=== PATIENT | male | born 1985 | race Caucasian/White ===

== ENCOUNTER 2017-10-22 21:43 | Inpatient (IN) | payer MEDICAID ==
[~2017-10-22] VITALS: Ht 170.2 cm; Wt 77.1 kg
--- NOTE | ~2017-10-22 | OP ---
PATIENT NAME: SIMONE CHANDLER MEDICAL RECORD: [id number] :83 LOCATION:[id number] ADMISSION DATE:10/23/17 SURGEON: DARLENE WEAVER MD DATE OF OPERATION: 10/23/2017 PREOPERATIVE DIAGNOSES: 1. Infected left wrist. 2. 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 3. Osteomyelitis of the left wrist. POSTOPERATIVE DIAGNOSES: 1. Infected left wrist. 2. 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 3. Osteomyelitis of the left wrist. PROCEDURES: 1. Excisional debridement of the left wrist and forearm to include skin, subcutaneous tissue, portions of fat, fascia, muscle, and bone. 2. Removal of previously placed hardware. 3. Wound VAC application. 4. Biplane external fixator application. SURGEON: Darlene Weaver MD ANESTHESIA: General. INTRAOPERATIVE COMPLICATIONS: Essentially none. SUMMARY OF PATHOLOGIC FINDINGS: While on initial x-rays what was previously thought to be a strut but this was actually a cement interposition to the Steinmann pin placed through the third metacarpal into the forearm was loose and was removed very easily. The Steinmann pin about the cement was also removed very easily. However, the remaining Steinmann pin although it was removed was fully threaded and went into the second metacarpal. INDICATIONS: A 32-year-old gentleman who came to our Emergency Department with an open draining wound on the volar aspect of his forearm with a history of 11 surgeries over 4 years done in [place], he was told that the infection was clear. He recently moved to our area and his arm became swollen. He has very limited use of his arm when he presented and was very adamant that his hand be cut off just above the wrist. After a superintendent [employer] discussion, I convinced him that I had to have the infection cleared before we have made that incision and the decision was made to proceed with the above surgery. OPERATIVE SUMMARY IN DETAIL: After obtaining the appropriate preoperative orthopedic surgery consent as well as anesthetic consultation, evaluation and clearance, the patient was brought to the operative suite and placed in the operating table in supine position. After general laryngeal mask was administered, tourniquet was placed about the proximal aspect of the left upper extremity. Left upper extremity was then prepped and draped in routine sterile fashion. The arm was elevated and exsanguinated, tourniquet inflated to 250 mmHg. The pin sticking out of the third metacarpal was immediately removed with little degree of difficulty. At this point, an incision was made over previous OPERATIVE REPORT [id number] SIMONE CHANDLER incision line over the volar aspect of the wrist and it was carried directly down to the patient's hardware. It is of note that all scar tissue was seen and no dorsal extensor tendons were noted, although dissection was carried out to find them and none were noted. At this point, it was discovered that this was a cement spacer interposition and it had obvious infection all around it. This was removed and cultures were taken at this time. Next, a grant was then placed around the fully threaded screw and it was removed. Fluoroscopy was brought in to be sure that all hardware was removed at this time and then a combination of curettage, scalpel, and rongeur was utilized to remove all infectious and nonviable-appearing material and including portions of bone and the third metacarpal did appear to have an infection in it. This was curettaged out. Having completed this, copious lavage was then run through the wound and irrigated out. Next, an external fixator was applied. Radius pin was moved more proximal than usual, but they were placed through the radius and into the second metacarpal. The hand was essentially stabilized with the external fixator. It is of note that the distal third of his ulna excised previously. Having completed this, a wound VAC was applied to the open wound around the Ex-Fix. Good secure suction was achieved and 125 mm negative pressure, medium intensity on continuous suction. At this point, the patient was awakened, taken to the recovery room in stable condition. All final needle and sponge counts were correct. TRANSINT:[id number] Voice Confirmation ID: [id number] DOCUMENT ID: [id number] [address], DARLENE ART at 1133 CC: [id number] DICTATION DATE: 10/23/172039 UTILITIES EQUIPMENT REPAIRER: 10/24/17 0714 [facility] [place] [id number] [place] [id number]
[2017-10-23] VITALS (10 sets, daily range): BP systolic 116–148; BP diastolic 52–84; BMI 26.7
[2017-10-23 01:55] LABS: BASOPHILS 0.2 % (0-2); EOSINOPHILS 1.5 % (0-7); HEMATOCRIT 36.8 % (42.0-54.0); IMMATURE GRANULOCYTES 0.3 % (0-5); LYMPHOCYTES 21.4 % (15-50); MCH 25.8 pg (26.0-34.0); MCHC 32.6 g/dL (31.0-37.0); MEAN PLATELET VOLUME 9.3 fL (7.4-10.4); MONOCYTES 14.9 % (2-11); NEUTROPHILS 61.7 % (40-80); PLATELET COUNT 255 10x3/uL (130-400); RBC 4.66 10x6/uL (4.20-6.10); RDW 14.7 % (11.5-14.5); WBC 9.1 10x3/uL (4.8-10.8)
[2017-10-23 02:12] LABS: ALBUMIN 3.1 g/dL (3.4-5.0); ANION GAP 11.9 mmol/L (8-16); BILIRUBIN - TOTAL 0.7 mg/dL (0.2-1.3); CARBON DIOXIDE 25.5 mmol/L (21.0-32.0); CREATININE - SERUM 1.2 mg/dL (0.6-1.3); POTASSIUM - SERUM 3.4 mmol/L (3.5-5.1); PROTEIN - SERUM 7.1 g/dL (6.4-8.2)
[2017-10-23 03:39] LABS: APTT 39.6 SECONDS (22.8-39.4); INR 1.14 (0.85-1.17); PROTIME 14.2 SECONDS (11.6-15.0)
[2017-10-23 14:01] LABS: APPEARANCE CLEAR (CLEAR); BILIRUBIN NEGATIVE (NEGATIVE); COLOR DK YELLOW (YELLOW); GLUCOSE 100 mg/dL (NEGATIVE); KETONE NEGATIVE (NEGATIVE); NITRITE NEGATIVE (NEGATIVE); PROTEIN NEGATIVE (NEGATIVE); SPECIFIC GRAVITY 1.015 (1.005-1.020); UROBILINOGEN NORMAL (NORMAL)
[2017-10-24 04:00] VITALS: BP 113/62
[2017-10-24 07:59] VITALS: BP 129/60
[2017-10-24 12:34] VITALS: BP 129/70
[2017-10-24 13:12] VITALS: BMI 26.6
[2017-10-24 15:45] VITALS: BP 125/62
[2017-10-24 16:08] VITALS: Ht 170.2 cm; Wt 77.1 kg
[2017-10-24 20:00] VITALS: BP 135/75
[2017-10-25] VITALS: BP 129/88
[2017-10-25 04:00] VITALS: BP 138/77
[2017-10-25 05:55] LABS: BASOPHILS 0.1 % (0-2); EOSINOPHILS 0.5 % (0-7); HEMOGLOBIN 11.3 g/dL (13.5-17.5); IMMATURE GRANULOCYTES 0.3 % (0-5); LYMPHOCYTES 27.6 % (15-50); MCH 25.6 pg (26.0-34.0); MCHC 32.3 g/dL (31.0-37.0); MCV 79.2 fL (80.0-100.0); MEAN PLATELET VOLUME 9.5 fL (7.4-10.4); MONOCYTES 9.2 % (2-11); NEUTROPHILS 62.3 % (40-80); PLATELET COUNT 251 10x3/uL (130-400); RBC 4.42 10x6/uL (4.20-6.10); RDW 14.4 % (11.5-14.5); WBC 7.6 10x3/uL (4.8-10.8)
[2017-10-25 06:06] LABS: CALC OSMOLALITY 276 mosm/kg (275-300); CALCIUM 7.8 mg/dL (8.5-10.1); CARBON DIOXIDE 24.8 mmol/L (21.0-32.0); CHLORIDE - SERUM 105 mmol/L (98-107); CREATININE - SERUM 0.9 mg/dL (0.6-1.3); GLUCOSE 119 mg/dL (74-106); SODIUM 139 mmol/L (136-145); UREA NITROGEN 8 mg/dL (7-18); eGFR NON AFRICAN AMERICAN > 90 mL/min (90-120)
[2017-10-25 06:08] LABS: POTASSIUM - SERUM 2.8 mmol/L (3.5-5.1)
[2017-10-25 07:03] VITALS: BP 146/95
[2017-10-25 11:10] VITALS: BP 132/81
[2017-10-25 15:07] VITALS: BP 142/83
[2017-10-25 23:37] VITALS: BP 144/89
[2017-10-26 04:00] VITALS: BP 140/97
[2017-10-26 04:51] LABS: VANCOMYCIN - TROUGH 7.2 ug/mL (10.0-20.0)
[2017-10-26 04:53] LABS: POTASSIUM - SERUM 3.5 mmol/L (3.5-5.1)
[2017-10-26 09:23] VITALS: BP 135/86
[2017-10-26 11:43] VITALS: BP 143/94
[2017-10-26 16:00] VITALS: BP 132/87
[2017-10-26 20:00] VITALS: BP 130/80
[2017-10-27 04:00] VITALS: BP 135/80
[2017-10-27 07:28] LABS: C-REACTIVE PROTEIN 4.5 mg/dL (0.0-0.9); CALC OSMOLALITY 270 mosm/kg (275-300); CALCIUM 9.1 mg/dL (8.5-10.1); CARBON DIOXIDE 26.3 mmol/L (21.0-32.0); CHLORIDE - SERUM 100 mmol/L (98-107); GLUCOSE 94 mg/dL (74-106); POTASSIUM - SERUM 4.5 mmol/L (3.5-5.1); SODIUM 135 mmol/L (136-145); eGFR NON AFRICAN AMERICAN > 90 mL/min (90-120)
[2017-10-27 07:31] LABS: UREA NITROGEN 14 mg/dL (7-18)
[2017-10-27 07:32] LABS: HEMATOCRIT 41.7 % (42.0-54.0); MCH 26.1 pg (26.0-34.0); MCHC 33.1 g/dL (31.0-37.0); MEAN PLATELET VOLUME 9.7 fL (7.4-10.4); RBC 5.28 10x6/uL (4.20-6.10); RDW 14.2 % (11.5-14.5); WBC 5.9 10x3/uL (4.8-10.8)
[2017-10-27 07:36] LABS: HEMOGLOBIN 13.8 g/dL (13.5-17.5); PLATELET COUNT 339 10x3/uL (130-400)
[2017-10-27 08:59] LABS: ERYTHROCYTE SEDIMENTATION RATE 16 mm/hr (0-15)
[2017-10-27 12:55] VITALS: BP 130/85
[2017-10-27 16:59] VITALS: BP 158/87
[2017-10-27 20:00] VITALS: BP 128/80
[2017-10-28 04:00] VITALS: BP 134/78
[2017-10-28 12:46] VITALS: BP 104/66; BP 124/72
[2017-10-28 16:12] VITALS: BP 146/79
[2017-10-28 20:00] VITALS: BP 135/78
[2017-10-29 04:00] VITALS: BP 165/88
[2017-10-29 08:06] LABS: HEMATOCRIT 41.8 % (42.0-54.0); HEMOGLOBIN 13.3 g/dL (13.5-17.5); MCH 25.2 pg (26.0-34.0); MCHC 31.8 g/dL (31.0-37.0); MCV 79.2 fL (80.0-100.0); MEAN PLATELET VOLUME 8.9 fL (7.4-10.4); RBC 5.28 10x6/uL (4.20-6.10); RDW 14.4 % (11.5-14.5); WBC 8.1 10x3/uL (4.8-10.8)
[2017-10-29 08:21] LABS: CALC OSMOLALITY 272 mosm/kg (275-300); CALCIUM 9.3 mg/dL (8.5-10.1); CHLORIDE - SERUM 103 mmol/L (98-107); GLUCOSE 93 mg/dL (74-106); POTASSIUM - SERUM 4.5 mmol/L (3.5-5.1); SODIUM 136 mmol/L (136-145); UREA NITROGEN 14 mg/dL (7-18); eGFR NON AFRICAN AMERICAN > 90 mL/min (90-120)
[2017-10-29 08:28] VITALS: BP 141/68
[2017-10-29 12:39] VITALS: BP 146/81
[2017-10-29] MEDS ORDERED: DILAUDID2 MG PO (12:41)
[2017-10-29] MEDS ORDERED: DOXYCYCLINE HY100 M2 PO (12:43)
== END 2017-10-29 16:58 | disposition home health service (06) | DRG 496 ==
LOC: D.ER 21:43 → D.MS 10-23 05:17 → D.SDCHOLD 10-23 05:17 → D.MS 10-23 13:43 → D.SDCHOLD 10-23 13:43 → D.MS 10-24 14:38 → D.SDCHOLD 10-24 14:38 → D.MS 10-24 14:43
PROVIDERS: Orthopaedic Surgery; Physician Assistant Medical; Student in an Organized Health Care Education/Training Program
PROC: 0PPL04Z Removal of Internal Fixation Device from Left Ulna, Open Approach (ICD-10-PCS; principal; 2017-10-23 17:00)
PROC: 0PH Upper Bones, Insertion (ICD-10-PCS; 2017-10-23 17:00)
PROC: 0PBL0ZZ Excision of Left Ulna, Open Approach (ICD-10-PCS; 2017-10-23 17:00)
DX: T84.619A Infection and inflammatory reaction due to internal fixation device of unspecified bone of arm, initial encounter (principal); M86.632 Other chronic osteomyelitis, left radius and ulna; B19.20 Unspecified viral hepatitis C without hepatic coma

== ENCOUNTER 2017-11-22 08:11 | Emergency (ER) | payer MEDICAID ==
[2017-10-24 16:08] VITALS: BMI 26.6
[~2017-11-22 08:11] MED LIST: DILAUDID2 MG PO; DOXYCYCLINE HY100 M2 PO
[2017-11-22 10:05] LABS: BASOPHILS 0.3 % (0-2); EOSINOPHILS 0.5 % (0-7); HEMATOCRIT 42.7 % (42.0-54.0); HEMOGLOBIN 14.1 g/dL (13.5-17.5); IMMATURE GRANULOCYTES 0.2 % (0-5); LYMPHOCYTES 12.9 % (15-50); MCH 26.1 pg (26.0-34.0); MCV 79.1 fL (80.0-100.0); MEAN PLATELET VOLUME 9.1 fL (7.4-10.4); MONOCYTES 7.9 % (2-11); NEUTROPHILS 78.2 % (40-80); PLATELET COUNT 289 10x3/uL (130-400); RDW 15.2 % (11.5-14.5)
[2017-11-22 10:20] LABS: ALBUMIN 4.1 g/dL (3.4-5.0); ANION GAP 12.7 mmol/L (8-16); BILIRUBIN - TOTAL 0.71 mg/dL (0.2-1.3); CALCIUM 9.7 mg/dL (8.5-10.1); CARBON DIOXIDE 24.8 mmol/L (21.0-32.0); CREATININE - SERUM 1.3 mg/dL (0.6-1.3); POTASSIUM - SERUM 3.5 mmol/L (3.5-5.1); PROTEIN - SERUM 8.4 g/dL (6.4-8.2)
== END 2017-11-22 13:06 | disposition short-term general hospital (02) ==
LOC: D.ER 08:11
PROVIDERS: Emergency Medicine
DX: I60.9 Nontraumatic subarachnoid hemorrhage, unspecified (principal); S01.01XA Laceration without foreign body of scalp, initial encounter; W19.XXXA Unspecified fall, initial encounter; Y93.51 Activity, roller skating (inline) and skateboarding; Y92.89 Other specified places as the place of occurrence of the external cause; S02.91XA Unspecified fracture of skull, initial encounter for closed fracture; F17.200 Nicotine dependence, unspecified, uncomplicated

== ENCOUNTER 2018-02-06 22:01 | Emergency (ER) | payer MEDICAID ==
[2017-10-24 16:08] VITALS: BMI 26.6
== END 2018-02-06 23:06 | disposition home or self-care (01) ==
LOC: D.ER 22:01
DX: S52.92XG Unspecified fracture of left forearm, subsequent encounter for closed fracture with delayed healing (principal); X58.XXXD Exposure to other specified factors, subsequent encounter; F17.200 Nicotine dependence, unspecified, uncomplicated

== ENCOUNTER 2018-02-07 01:39 | Emergency (ER) | payer MEDICAID ==
[2017-10-24 16:08] VITALS: BMI 26.6
[2018-02-07 02:30] LABS: BASOPHILS 0.3 % (0-2); EOSINOPHILS 1.1 % (0-7); HEMATOCRIT 44.7 % (42.0-54.0); IMMATURE GRANULOCYTES 0.2 % (0-5); LYMPHOCYTES 34.5 % (15-50); MCH 27.6 pg (26.0-34.0); MCHC 33.6 g/dL (31.0-37.0); MCV 82.3 fL (80.0-100.0); MEAN PLATELET VOLUME 9.9 fL (7.4-10.4); MONOCYTES 12.6 % (2-11); NEUTROPHILS 51.3 % (40-80); RBC 5.43 10x6/uL (4.20-6.10); RDW 14.7 % (11.5-14.5); WBC 8.9 10x3/uL (4.8-10.8)
[2018-02-07 02:38] LABS: PLATELET COUNT 226 10x3/uL (130-400)
[2018-02-07 02:46] LABS: ALBUMIN 3.5 g/dL (3.4-5.0); ALKALINE PHOSPHATASE 99 U/L (46-116); ALT (SGPT) 58 U/L (10-68); CALC OSMOLALITY 278 mosm/kg (275-300); CALCIUM 9.3 mg/dL (8.5-10.1); CARBON DIOXIDE 29.5 mmol/L (21.0-32.0); CHLORIDE - SERUM 102 mmol/L (98-107); CREATININE - SERUM 1.3 mg/dL (0.6-1.3); GLUCOSE 91 mg/dL (74-106); POTASSIUM - SERUM 3.2 mmol/L (3.5-5.1); PROTEIN - SERUM 7.6 g/dL (6.4-8.2); SODIUM 140 mmol/L (136-145); UREA NITROGEN 13 mg/dL (7-18); eGFR NON AFRICAN AMERICAN 67 mL/min (90-120)
[2018-02-07 02:57] LABS: CHOL - HDL RATIO 3.5 ratio (2.3-4.9); CHOLESTEROL, TOTAL 163 mg/dL (0-200); CREATINE KINASE 232 UL (21-232); HDL CHOLESTEROL 47 mg/dL (32-96); LDL CHOLESTEROL 100 mg/dL (0-100); LDL-HDL RATIO 2.1 ratio (1.5-3.5); TRIGLYCERIDE 80 mg/dL (30-200)
[2018-02-07 02:59] LABS: TROPONIN-I < 0.017 ng/mL (0.000-0.060)
== END 2018-02-07 03:29 | disposition home or self-care (01) ==
LOC: D.ER 01:39
PROVIDERS: Family Medicine
DX: R07.9 Chest pain, unspecified (principal)

== ENCOUNTER 2018-02-07 08:50 | Emergency (ER) | payer MEDICAID ==
[2017-10-24 16:08] VITALS: BMI 26.6
== END 2018-02-07 10:42 | disposition home or self-care (01) ==
LOC: D.ER 08:50
DX: T85.9XXA Unspecified complication of internal prosthetic device, implant and graft, initial encounter (principal); M79.632 Pain in left forearm

== ENCOUNTER 2018-03-09 09:08 | Day surgery (SDC) | payer MEDICAID ==
[~2018-03-09] VITALS: Ht 170.2 cm; Wt 79.4 kg
--- NOTE | ~2018-03-09 | OP ---
PATIENT NAME: SIMONE CHANDLER MEDICAL RECORD: [id number] :83 LOCATION:[facility] ADMISSION DATE: SURGEON: DARLENE WEAVER MD DATE OF OPERATION: 03/09/2018 PREOPERATIVE DIAGNOSIS: Retained external fixator of the left upper extremity. POSTOPERATIVE DIAGNOSIS: Retained external fixator of the left upper extremity. PROCEDURE: Removal of hardware of the left upper extremity. SURGEON: Darlene Weaver MD ANESTHESIA: General. INTRAOPERATIVE COMPLICATIONS: None. SUMMARY OF PATHOLOGIC FINDINGS: The patient was indeed found to have stiffness and contracture. While the wrist was not fused nor was it thought to be radiographically, it was much more stable than previously. INDICATIONS: Mr. Simone Chandler is 32-year-old gentleman who has a long history of problems with his wrist. He migrated to the area from [facility] after he had somewhere in the neighborhood of 15 operations on his wrist and he presented with a Steinmann pin sticking out of his long metacarpal knuckle. Subsequent workup showed the patient to have substantial osteomyelitis and surgical intervention showed the patient to have a cement laden K-wire that had eventually worked its way loose and out the patient's knuckle. After operative intervention, the patient was placed in an external fixator with plans on removal within 6-8 weeks. He, however, failed to return to my clinic until last week where I told him we would take the external fixator off and if he did not develop signs of osteomyelitis, we would consider external splinting as a form of a prosthetic to help him use his hand. At this point, any further operative intervention will be referred out from my standpoint, but it does appear that his osteomyelitis may be better, although he may now have osteomyelitis at his pin tracts as he has been noncompliant. OPERATIVE SUMMARY IN DETAIL: After obtaining the appropriate preoperative orthopedic surgery consent as well as anesthetic consultation, evaluation, and clearance, the patient was brought to the operating room and placed on the operating table in supine position. After general anesthesia was administered, the patient's right upper extremity and ex-fix were prepped and draped in routine sterile fashion. The frame was removed. The [place] pins were removed. They were loose; however, not grossly infected. [place] pin sites were treated with bacitracin ointment. Sterile dressings were applied. The patient was placed in a volar splint to allow for swelling to go down. Again, hopefully, if this heals, we will place him in a long-term external prosthesis. The patient was awakened and taken to recovery room in stable condition. All final needle and sponge counts were correct. TRANSINT:[id number] Voice Confirmation ID: [id number] DOCUMENT ID: [id number] OPERATIVE REPORT [id number] SIMONE CHANDLER MD, DARLENE ART at 1856 CC: [id number] DICTATION DATE: 03/09/18 1535 WEIGHT AND BALANCE CONTROL AGENT: 03/09/18 1603 [facility] [address] [place] [id number]
[2018-03-09 09:36] LABS: BASOPHILS 0.4 % (0-2); EOSINOPHILS 3.3 % (0-7); HEMATOCRIT 44.5 % (42.0-54.0); HEMOGLOBIN 14.6 g/dL (13.5-17.5); IMMATURE GRANULOCYTES 0.3 % (0-5); LYMPHOCYTES 34.1 % (15-50); MCH 27.4 pg (26.0-34.0); MCHC 32.8 g/dL (31.0-37.0); MCV 83.5 fL (80.0-100.0); MEAN PLATELET VOLUME 9.6 fL (7.4-10.4); MONOCYTES 10.3 % (2-11); NEUTROPHILS 51.6 % (40-80); RBC 5.33 10x6/uL (4.20-6.10); RDW 13.6 % (11.5-14.5); WBC 6.7 10x3/uL (4.8-10.8)
[2018-03-09 09:39] LABS: PLATELET COUNT 292 10x3/uL (130-400)
[2018-03-09 12:13] VITALS: BP 126/85; Ht 170.2 cm; Wt 79.4 kg
[2018-03-09] MEDS ORDERED: PERCOCET 10/3251 TA1 PO (15:37)
== END 2018-03-09 18:25 | disposition home or self-care (01) ==
LOC: D.OPS 09:08 → D.PAN 15:45 → D.OPS 18:25
PROVIDERS: Anesthesiology
DX: Z47.2 Encounter for removal of internal fixation device (principal); Z01.812 Encounter for preprocedural laboratory examination

== ENCOUNTER 2018-05-17 02:59 | Emergency (ER) | payer SELFPAY ==
[~2018-05-17] VITALS: Ht 170.2 cm; Wt 59.0 kg
[~2018-05-17 02:59] MED LIST changes: +PERCOCET 10/3251 TA1 PO
[2018-05-17 03:04] VITALS: Ht 170.2 cm; Wt 59.0 kg
[2018-05-17] MEDS ORDERED: PERCOCET 7.5/321 TAB PO (04:53)
[2018-05-17 05:12] VITALS: BP 131/74
== END 2018-05-17 05:13 | disposition home or self-care (01) ==
LOC: D.ER 02:59
DX: M25.512 Pain in left shoulder (principal); F17.200 Nicotine dependence, unspecified, uncomplicated

== ENCOUNTER 2018-06-12 05:27 | Emergency (ER) | payer SELFPAY ==
[~2018-06-12] VITALS: Ht 170.2 cm; Wt 75.0 kg
[~2018-06-12 05:27] MED LIST changes: +PERCOCET 7.5/321 TAB PO
[2018-06-12 05:35] VITALS: Ht 170.2 cm; Wt 75.0 kg
[2018-06-12] MEDS ORDERED: TENORMIN25 MG PO (06:03)
[2018-06-12 06:18] VITALS: BP 145/108
[2018-06-13] MEDS ORDERED: PERCOCET 7.5/321 TAB PO (10:39)
== END 2018-06-12 06:19 | disposition home or self-care (01) ==
LOC: D.ER 05:27
DX: I10 Essential (primary) hypertension (principal); F41.9 Anxiety disorder, unspecified; B19.20 Unspecified viral hepatitis C without hepatic coma; F17.200 Nicotine dependence, unspecified, uncomplicated

== ENCOUNTER 2018-06-13 09:45 | Emergency (ER) | payer SELFPAY ==
[~2018-06-13] VITALS: Ht 170.2 cm; Wt 75.9 kg
[~2018-06-13 09:45] MED LIST changes: +TENORMIN25 MG PO
[2018-06-13 09:48] VITALS: Ht 170.2 cm; Wt 75.9 kg
[2018-06-13] MEDS ORDERED: PERCOCET 7.5/321 TAB PO (10:39)
[2018-06-13 11:30] VITALS: BP 128/68
== END 2018-06-13 11:31 | disposition home or self-care (01) ==
LOC: D.ER 09:45
DX: S60.212A Contusion of left wrist, initial encounter (principal); V19.9XXA Pedal cyclist (driver) (passenger) injured in unspecified traffic accident, initial encounter; Y93.55 Activity, bike riding; Y92.410 Unspecified street and highway as the place of occurrence of the external cause; I10 Essential (primary) hypertension; F17.200 Nicotine dependence, unspecified, uncomplicated

== ENCOUNTER 2019-09-09 17:49 | Emergency (ER) | payer MEDICAID ==
[~2019-09-09] VITALS: Ht 170.2 cm; Wt 70.5 kg
[2019-09-09 18:18] VITALS: BP 145/100; Ht 170.2 cm; Wt 70.5 kg
== END 2019-09-09 19:06 | disposition home or self-care (01) ==
LOC: D.ER 17:49
DX: Z48.02 Encounter for removal of sutures (principal)